=== PATIENT | male | born 1950 | race Caucasian/White ===

== ENCOUNTER 2017-09-19 12:20 | Inpatient (IN) | payer OTHER ==
[~2017-09-19] VITALS: Ht 182.9 cm; Wt 112.9 kg
--- NOTE | 2017-09-19 12:30 | NUR ---
PATIENT PRESENTS TO ED WITH COMPLAINTS OF SHORTNESS OF BREATH AND DIZZINES. REPORTS BEING RECENTLY DX WITH AFIB.DENIES N/V/D; SKIN IS PINK/WARM/DRY; AAOX4 WITH EVEN AND STEADY GAIT; PATIENT STATES PAIN OF 0/10 AT THIS TIME; VSS; PATIENT POSITIONED FOR COMFORT; HOB ELEVATED; BEDRAILS UP X1; BED DOWN. ER MD MADE AWARE OF PT STATUS.
[2017-09-19] MEDS ORDERED: NACL 0.9% 1,000 ML IV ONE (12:40)
[2017-09-19 13:27] LABS: BASOPHILS # (AUTO) 0.1 K/uL (0.00-0.22); BASOPHILS % (AUTO) 0.6 % (0.0-2.0); EOSINOPHILS # (AUTO) 0.1 K/uL (0-0.4); EOSINOPHILS % (AUTO) 0.9 % (0.0-4.0); HEMATOCRIT 37.1 % (36-52); HEMOGLOBIN 12.1 g/dL (12.0-18.0); LYMPHOCYTES # (AUTO) 1.5 K/uL (2.0-11.5); LYMPHOCYTES % (AUTO) 10.3 % (20.5-51.1); MEAN CORPUSCULAR HEMOGLOBIN 29 pg (27-31); MEAN CORPUSCULAR HGB CONC 33 g/dL (33-37); MEAN CORPUSCULAR VOLUME 88.2 fL (80-94); MONOCYTES % (AUTO) 7.3 % (1.7-9.3); NEUTROPHILS # (AUTO) 11.5 K/uL (1.8-7.7); NEUTROPHILS % (AUTO) 80.9 % (42.2-75.2); PLATELET COUNT (AUTO) 310 K/uL (140-450); RED BLOOD CELL COUNT(AUTO) 4.21 MIL/uL (4.20-6.10); RED CELL DISTRIBUTION WIDTH 17.7 % (11.6-13.7); WHITE BLOOD COUNT (AUTO) 14.2 K/uL (4.8-10.8)
--- NOTE | 2017-09-19 13:31 | NUR ---
X-RAY AT BEDSIDE
[2017-09-19 13:41] LABS: ALBUMIN 3.8 g/dL (3.4-5.0); CARBON DIOXIDE 26.5 mmol/L (21-32); CREATININE 1.2 mg/dL (0.7-1.3); POTASSIUM 3.5 mmol/L (3.5-5.1); TOTAL BILIRUBIN 0.7 mg/dL (0.0-1.0)
[2017-09-19] MEDS ORDERED: FUROSEMIDE 40 MG/4 ML VIAL IVP ONE (14:35)
[2017-09-19] MEDS ORDERED: ALBUTEROL SULFATE/IPRATROPIU 3 ML SOL IH ONE (14:35)
[2017-09-19] MEDS ORDERED: NITROGLYCERIN 2% 1 GM PKT TP ONE (14:35)
[2017-09-19] MEDS ORDERED: KETOROLAC 30 MG/ML VIAL IVP ONE (15:10)
[2017-09-19] MEDS: NACL 0.9% 1,000 ML IV SCH (15:16)
[2017-09-19] MEDS ORDERED: HYDROcodone/APAP 7.5/325 MG 1 TAB PO PRN (15:20)
[2017-09-19] MEDS ORDERED: ACETAMINOPHEN 325 MG TAB PO PRN (15:20)
[2017-09-19] MEDS ORDERED: ONDANSETRON 4 MG/2 ML VIAL IM/IVP PRN (15:20)
[2017-09-19] MEDS ORDERED: DOCUSATE SODIUM 100 MG GELCAP PO PRN (15:20)
[2017-09-19] MEDS ORDERED: [UNRECOGNIZED DRUG - CODE] PO (15:50)
[2017-09-19] MEDS ORDERED: GABA300C PO (15:50)
[2017-09-19] MEDS ORDERED: TRAM50TA1 PO (15:50)
[2017-09-19] MEDS ORDERED: CAR30 PO (15:50)
--- NOTE | 2017-09-19 16:00 | NUR ---
Admitted from ER , with chief complaint of SOB, 67 y/o ,Male, Appropriate, AAOX4 NO S/S OF ACUTE DISTRESS, PT DENIES PAIN. IV SITE PATENT AND INTACT. PT oriented to call light, bed, phone,television, bathroom, smoking policy, visiting hours, procedures, ID bracelet on. Belongings list checked. CALL LIGHT WITHIN REACH. SAFETY MEASURES ENSURED. WILL CONTINUE TO MONITOR.
[2017-09-19 16:11] LABS: APPEARANCE,URINE CLEAR (CLEAR); BILIRUBIN,URINE NEGATIVE (NEGATIVE); BLOOD, URINE NEGATIVE (NEGATIVE); COLOR,URINE YELLOW (YELLOW); LEUKOCYTE ESTERASE ,URINE NEGATIVE (NEGATIVE); NITRITE, URINE NEGATIVE (NEGATIVE); UGLUCOSE NEGATIVE (NEGATIVE)
[2017-09-19 16:15] LABS: PROTHROMBIN TIME 10.6 secs (10.8-13.4)
[2017-09-19 16:19] VITALS: BP 120/93
[2017-09-19 16:26] LABS: BARBITURATE, URINE NEG. ng/ml (NEG <=200); BENZODIAZEPINE, URINE NEG. ng/mL (NEG <=200); CANNABINOID, URINE NEG. ng/mL (NEG <=50); COCAINE, URINE NEG. ng/mL (NEG <=300); OPIATE, URINE NEG. ng/mL (NEG <=2000); PHENCYCLIDINE SCREEN,URINE NEG. ng/mL (NEG <=25)
[2017-09-19 16:31] LABS: CHOL/HDL RATIO 2.8 (1-4.5); FREE T4 (FREE THYROXINE) 0.99 ng/dL (0.76-1.46); PHOSPHORUS 3.9 mg/dL (2.5-4.9); THYROID STIMULATING HORMONE 1.96 uIU/mL (0.34-3.74)
[2017-09-19] MEDS ORDERED: APIX5TAB PO (16:42)
[2017-09-19] MEDS ORDERED: ALBU0.0912 IH (16:42)
[2017-09-19] MEDS ORDERED: AMITRIPTYLINE 50 MG TAB PO PRN (16:45)
[2017-09-19] MEDS ORDERED: traMADol 50 MG TAB PO PRN (16:45)
--- NOTE | 2017-09-19 17:01 | NUR ---
INSTRUCTED PT ON SPUTUM COLLECTION
[2017-09-19] MEDS ORDERED: ATOR40TA PO (17:14)
[2017-09-19] MEDS: GABAPENTIN 300 MG CAP PO SCH ×2 (17:42→20:37)
[2017-09-19] MEDS ORDERED: ALBUTEROL SULFATE/IPRATROPIU 3 ML SOL IH SCH (19:00)
--- NOTE | 2017-09-19 19:20 | NUR ---
RECEIVED REPORT FROM DAY SHIFT NURSE DUNIA-RN. PT RESTING IN BED, AOX4, ON 2L/NC WITH IV SITE RIGHT HAND 20G- NS RUNNING AT 50ML/HR. LUNG SOUNDS DIMINISHED BILATERALLY. DISCUSSED PLAN OF CARE AND PT VERBALIZED UNDERSTANDING. NO S/S OF RESPIRATORY DISTRESS OR DISCOMFORT NOTED AT THIS TIME. BED IN LOWEST POSITION, BED BREAKS ON, BOTH SIDE RAILS UP. BED SIDE TABLE AND CALL LIGHT ARE WITHIN REACH. WILL CONTINUE TO MONITOR.
[2017-09-19 20:00] VITALS: BP 110/69
--- NOTE | 2017-09-19 20:00 | NUR ---
VITAL SIGNS TAKEN AND TOLERATED WELL. NO S/S OF RESPIRATORY DISTRESS OR DISCOMFORT NOTED AT THIS TIME. WILL CONTINUE TO MONITOR.
[2017-09-19] MEDS: APIXABAN 2.5 MG TAB PO SCH (20:38)
[2017-09-19] MEDS: DILTIAZEM 30 MG TAB PO SCH (20:38)
--- NOTE | 2017-09-19 20:40 | NUR ---
SCHEDULED MEDICATION GIVEN AND TOLERATED WELL. NO S/S OF RESPIRATORY DISTRESS OR DISCOMFORT NOTED AT THIS TIME. WILL CONTINUE TO MONITOR.
[2017-09-19] MEDS ORDERED: DILTIAZEM 30 MG TAB PO SCH (21:00)
--- NOTE | 2017-09-19 22:00 | NUR ---
PT RESTING IN BED. NO S/S OF RESPIRATORY DISTRESS OR DISCOMFORT NOTED AT THIS TIME. WILL CONTINUE TO MONITOR.
[2017-09-20] VITALS: BP 105/75
--- NOTE | 2017-09-20 | NUR ---
PT SLEEPING IN BED. VITAL SIGNS TAKEN AND TOLERATED WELL. NO S/S OF RESPIRATORY DISTRESS OR DISCOMFORT NOTED AT THIS TIME. WILL CONTINUE TO MONITOR.
--- NOTE | 2017-09-20 02:00 | NUR ---
PT SITTING ON THE EDGE OF THE BED. ASKED IF ANYTHING WAS WRONG OR IF HE NEEDED ANYTHING AND HE STATED, "CAN YOU TURN DOWN THE A/C, IT'S HOT IN THIS ROOM." TOLD PT THAT WE ARE CURRENTLY HAVING PROBLEMS WITH THE A/C UNIT. NO S/S OF RESPIRATORY DISTRESS OR DISCOMFORT NOTED AT THIS TIME. WILL CONTINUE TO MONITOR.
[2017-09-20 04:00] VITALS: BP 105/62
--- NOTE | 2017-09-20 04:00 | NUR ---
PT SLEEPING IN BED. VITAL SIGNS TAKEN AND TOLERATED WELL. NO S/S OF RESPIRATORY DISTRESS OR DISCOMFORT NOTED AT THIS TIME. WILL CONTINUE TO MONITOR.
[2017-09-20] MEDS: DILTIAZEM 30 MG TAB PO SCH ×3 (04:57→21:37)
--- NOTE | 2017-09-20 05:00 | NUR ---
SCHEDULED MEDICATION CARDIZEM GIVEN AND TOLERATED WELL. NO S/S OF RESPIRATORY DISTRESS OR DISCOMFORT NOTED AT THIS TIME. WILL CONTINUE TO MONITOR.
--- NOTE | 2017-09-20 06:00 | NUR ---
PT SLEEPING IN BED AT THIS TIME. NO S/S OF RESPIRATORY DISTRESS OR DISCOMFORT NOTED AT THIS TIME. WILL CONTINUE TO MONITOR.
[2017-09-20 06:22] LABS: T4 (THYROXINE) 6.8 ug/dL (4.5-12.0)
[2017-09-20 07:12] LABS: BASOPHILS # (AUTO) 0.1 K/uL (0.00-0.22); BASOPHILS % (AUTO) 0.7 % (0.0-2.0); EOSINOPHILS # (AUTO) 0.2 K/uL (0-0.4); EOSINOPHILS % (AUTO) 1.6 % (0.0-4.0); HEMATOCRIT 36.5 % (36-52); HEMOGLOBIN 11.9 g/dL (12.0-18.0); LYMPHOCYTES # (AUTO) 1.6 K/uL (2.0-11.5); LYMPHOCYTES % (AUTO) 14.3 % (20.5-51.1); MEAN CORPUSCULAR HEMOGLOBIN 29 pg (27-31); MEAN CORPUSCULAR HGB CONC 33 g/dL (33-37); MEAN CORPUSCULAR VOLUME 88.3 fL (80-94); MONOCYTES # (AUTO) 0.9 K/uL (0.8-1.0); MONOCYTES % (AUTO) 7.9 % (1.7-9.3); NEUTROPHILS # (AUTO) 8.7 K/uL (1.8-7.7); NEUTROPHILS % (AUTO) 75.5 % (42.2-75.2); PLATELET COUNT (AUTO) 312 K/uL (140-450); RED BLOOD CELL COUNT(AUTO) 4.13 MIL/uL (4.20-6.10); RED CELL DISTRIBUTION WIDTH 17.8 % (11.6-13.7); WHITE BLOOD COUNT (AUTO) 11.5 K/uL (4.8-10.8)
--- NOTE | 2017-09-20 07:14 | NUR ---
ENDORSED PT CARE TO DAY SHIFT NURSE ELISEO FOR CONTINUITY OF CARE.
--- NOTE | 2017-09-20 07:15 | NUR ---
RECEIVED REPORT FROM RADIOLOGY SCHEDULER RN. PATIENT IS AAOX4. HAS NASAL CANNULA AT 2LPM, HAS NO SIGNS AND SYMPTOMS OF ACUTE DISTRESS NOTED AT THIS TIME. HAS IV TO THE RIGHT HAND 20G INFUSING NS AT 50 ML/HR. SITE IS CLEAN, DRY, PATENT AND INTACT. DISCUSSED PLAN OF CARE WITH PATIENT AND HE VERBALIZED UNDERSTANDING. BED IN LOWEST POSITION, SIDE RAILS UP X2, CALL LIGHT WITHIN REACH. WILL CONTINUE TO MONITOR.
[2017-09-20 07:17] LABS: ANION GAP 12.4 (8-16); CARBON DIOXIDE 26.6 mmol/L (21-32); CREATININE 1.3 mg/dL (0.7-1.3)
[2017-09-20 08:00] VITALS: BP 120/68
--- NOTE | 2017-09-20 08:20 | NUR ---
INSTRUCTED PT TO EXPECTORATE INTO SPECIMEN CUP. WILL CONT TO MONITOR PT.
[2017-09-20 08:57] LABS: MAGNESIUM 2.2 mg/dL (1.8-2.4); PHOSPHORUS 4.1 mg/dL (2.5-4.9)
--- NOTE | 2017-09-20 09:09 | NUR ---
PATIENT HAS BEEN SCREENED AND CATEGORIZED HIGH NUTRITION RISK. PATIENT WILL BE SEEN WITHIN 1-2 DAYS OF ADMISSION. 09/20/17 09/21/[address]
[2017-09-20] MEDS: ALBUTEROL SULFATE/IPRATROPIU 3 ML SOL IH PRN (09:16)
[2017-09-20] MEDS: GABAPENTIN 300 MG CAP PO SCH ×4 (09:44→21:38)
[2017-09-20] MEDS: ATORVASTATIN 20 MG TAB PO SCH (09:45)
[2017-09-20] MEDS: APIXABAN 2.5 MG TAB PO SCH ×2 (09:48→21:39)
[2017-09-20] MEDS: NACL 0.9% 1,000 ML IV SCH (10:10)
[2017-09-20 12:00] VITALS: BP 115/72
[2017-09-20] MEDS: ALBUTEROL SULFATE/IPRATROPIU 3 ML SOL IH SCH ×2 (13:38→19:00)
[2017-09-20 16:00] VITALS: BP 113/80
--- NOTE | 2017-09-20 19:32 | NUR ---
RECEIVED REPORT FROM BEATRIZ JC DAYSHIFT NURSE FOR CONTINUITY OF CARE, PT IN STABLE CONDITION.
--- NOTE | 2017-09-20 19:32 | NUR ---
ENDORSED PATIENT TO TECHNOLOGY EDUCATION TEACHER RN FOR CONTINUITY OF CARE. PATIENT IN STABLE CONDITION
[2017-09-20 20:00] VITALS: BP 109/73
--- NOTE | 2017-09-20 20:33 | NUR ---
PT ASLEEP, REFUSED HHNTX, NO RESP DISTRESS NOTED
[2017-09-20] MEDS ORDERED: SOTALOL 80 MG TAB PO SCH (21:00)
--- NOTE | 2017-09-20 21:00 | NUR ---
PT IN BED, RESTING BUT AROUSABLE TO NAME, NO C/O VOICED V/S FOLLOWS T 98.7 P 71 R 20 B/P 109/73 02 91 WITH R/A PT RECEIVED NEB TX AT 0000. IV SITE INTACT AND N/S RUNNING ORDERED.
[2017-09-21] VITALS: BP 115/81
[2017-09-21] MEDS: ALBUTEROL SULFATE/IPRATROPIU 3 ML SOL IH PRN ×2 (00:20→04:06)
--- NOTE | 2017-09-21 03:00 | NUR ---
PT BECAME RESTLESS AND C/O OF SOB. 02 WAS 97% WITH 2L VIA N/C. PT C/O OF NOT BEING ABLE TO "GET A BREATH IN". LUNG SOUNDS REFECT that c/o, NOT MUCH AIR MOVING IN SO NOT MUCH CAN MOVE OUT. MD SAL CALLED TO EXAMIN PT , RESPIRATORY CALLED AND NEB TX ORDERED.
[2017-09-21 04:00] VITALS: BP 96/65
--- NOTE | 2017-09-21 04:00 | NUR ---
4 PM V/S T 97.5 P 53 R 20 B/P 96/65 02 95 WITH 2 LITER VIA N/C. PT HAD NO C/O OF PAIN, AT THIS TIIME, ALL REQUESTED NEEDS ATTENDED BY STAFF AND CALL HAYDEN IN REACH.
[2017-09-21] MEDS: DILTIAZEM 30 MG TAB PO SCH (05:00)
--- NOTE | 2017-09-21 05:00 | NUR ---
PT RESTING IN BED NO S/S OF PAIN OR DISTRESS NOTED. BED LOW SIDE RAILS UP AND CALL HAYDEN IN REACH.
[2017-09-21 06:24] LABS: BASOPHILS # (AUTO) 0.1 K/uL (0.00-0.22); BASOPHILS % (AUTO) 0.7 % (0.0-2.0); EOSINOPHILS # (AUTO) 0.4 K/uL (0-0.4); EOSINOPHILS % (AUTO) 3.1 % (0.0-4.0); HEMATOCRIT 39.1 % (36-52); HEMOGLOBIN 12.6 g/dL (12.0-18.0); LYMPHOCYTES # (AUTO) 2.1 K/uL (2.0-11.5); LYMPHOCYTES % (AUTO) 16.2 % (20.5-51.1); MEAN CORPUSCULAR HEMOGLOBIN 29 pg (27-31); MEAN CORPUSCULAR HGB CONC 32 g/dL (33-37); MEAN CORPUSCULAR VOLUME 88.7 fL (80-94); MONOCYTES # (AUTO) 1.1 K/uL (0.8-1.0); MONOCYTES % (AUTO) 8.5 % (1.7-9.3); NEUTROPHILS # (AUTO) 9.2 K/uL (1.8-7.7); NEUTROPHILS % (AUTO) 71.5 % (42.2-75.2); PLATELET COUNT (AUTO) 354 K/uL (140-450); RED CELL DISTRIBUTION WIDTH 17.7 % (11.6-13.7); WHITE BLOOD COUNT (AUTO) 12.8 K/uL (4.8-10.8)
[2017-09-21 06:55] LABS: ANION GAP 11.9 (8-16); CARBON DIOXIDE 25.6 mmol/L (21-32); CREATININE 1.3 mg/dL (0.7-1.3); POTASSIUM 4.5 mmol/L (3.5-5.1)
[2017-09-21] MEDS: ALBUTEROL SULFATE/IPRATROPIU 3 ML SOL IH SCH (06:59)
[2017-09-21 07:08] LABS: MAGNESIUM 2.3 mg/dL (1.8-2.4); PHOSPHORUS 3.4 mg/dL (2.5-4.9)
--- NOTE | 2017-09-21 07:25 | NUR ---
GAVE REPORT AT BEDSIDE TO RN DAYSHIFT NURSE , PT IN STABLE CONDITION.
--- NOTE | 2017-09-21 07:26 | NUR ---
RECEIVED REPORT FROM PRE ALGEBRA TEACHER RN. PATIENT IS AAOX4. HAS NASAL CANNULA AT 2LPM, HAS NO SIGNS AND SYMPTOMS OF ACUTE DISTRESS NOTED AT THIS TIME. HAS IV TO THE LEFT HAND 22G INFUSING NS AT 50 ML/HR. SITE IS CLEAN, DRY, PATENT AND INTACT. DISCUSSED PLAN OF CARE WITH PATIENT AND HE VERBALIZED UNDERSTANDING. BED IN LOWEST POSITION, SIDE RAILS UP X2, CALL LIGHT WITHIN REACH. WILL CONTINUE TO MONITOR.
[2017-09-21 08:00] VITALS: BP 100/73
[2017-09-21] MEDS: ATORVASTATIN 20 MG TAB PO SCH (09:37)
[2017-09-21] MEDS: GABAPENTIN 300 MG CAP PO SCH (09:37)
[2017-09-21] MEDS: APIXABAN 2.5 MG TAB PO SCH (09:38)
--- NOTE | 2017-09-21 11:15 | NUR ---
PATIENT DIDN'T WANT TO WAIT FOR VOUCHER EXAMINER CONSULT. STATING THAT HE IS BEGINNING TO BE IN PAIN FROM LAYING AROUND TO MUCH. HIS FIBROMYALGIA IS ACTING UP. ASKING FOR THE AMA FORM. DR NULL EXPLAINED THE RISKS OF LEAVING AMA AND PATIENT VERBALIZED UNDERSTANDING. STILL WANTS TO LEAVE. REMOVED IV FROM SITE, CATHETER INTACT.
--- NOTE | 2017-09-21 11:35 | NUR ---
PATIENT DRESSED AND READY TO LEAVE. REQUESTED TO BE WHEELED OUT. HAS NO SIGNS AND SYMPTOMS OF ACUTE DISTRESS NOTED AT THIS TIME.
[2017-09-21] MEDS ORDERED: AZIT500T4 PO (15:49)
[2017-09-21] MEDS ORDERED: LACT10CA1 PO (15:50)
[2017-09-21] MEDS ORDERED: LISI-420 PO (15:51)
[2017-09-21] MEDS ORDERED: FURO-572 PO (15:55)
== END 2017-09-21 11:35 | disposition left against medical advice (07) | DRG 190 ==
LOC: MED 12:20 → MTU 15:16
PROVIDERS: ADMIT General Practice; ATTEND General Practice
DX: J44.1 Chronic obstructive pulmonary disease with (acute) exacerbation (principal); I50.43 Acute on chronic combined systolic (congestive) and diastolic (congestive) heart failure; I42.9 Cardiomyopathy, unspecified; G47.00 Insomnia, unspecified; E66.9 Obesity, unspecified; I48.91 Unspecified atrial fibrillation; Z88.2 Allergy status to sulfonamides; Z88.8 Allergy status to other drugs, medicaments and biological substances; M79.7 Fibromyalgia; F17.210 Nicotine dependence, cigarettes, uncomplicated; Z53.21 Procedure and treatment not carried out due to patient leaving prior to being seen by health care provider; D72.828 Other elevated white blood cell count; I34.0 Nonrheumatic mitral (valve) insufficiency; I27.21 Secondary pulmonary arterial hypertension; Z68.33 Body mass index [BMI] 33.0-33.9, adult; Z79.1 Long term (current) use of non-steroidal anti-inflammatories (NSAID); Z79.899 Other long term (current) drug therapy; Z90.49 Acquired absence of other specified parts of digestive tract
CPT/HCPCS: 36415; 36600; 71045; 80048; 80053; 80305; 81003; 82150; 82803; 83036; 83605; 83690; 83735; 83880; 84100; 84436; 84439; 84443; 84479; 84484; 85025; 85610; 85730; 87040; 87070; 87081; 87086; 87205; 93005; 94640; 96361; 96374; 96375; 99285; J0696; J1885; J1940; J7030; J7060; J7620; Q0092

== ENCOUNTER 2018-01-09 14:43 | Inpatient (IN) | payer OTHER ==
[~2018-01-09] VITALS: Ht 182.9 cm; Wt 123.8 kg
[~2018-01-09 14:43] MED LIST: ALBU0.0912 IH; APIX5TAB PO; ATOR40TA PO; AZIT500T4 PO; CAR30 PO; FURO-572 PO; GABA300C PO; LACT10CA1 PO; TRAM50TA1 PO; [UNRECOGNIZED DRUG - CODE] PO
[2018-01-09 14:51] VITALS: BP 129/83
--- NOTE | 2018-01-09 14:58 | NUR ---
PT AMBULATES TO BED 6 Addendum: 01/09/18 at 1458 by MEDHT BED 5
--- NOTE | 2018-01-09 15:11 | NUR ---
Patient being evaluated by physician at bedside.
--- NOTE | 2018-01-09 15:13 | NUR ---
67 YO M BIB W/ C/O CHEST DYSCOMFORT & COUGH X 5 DAYS. HX : SMOKE CIGARETTS. 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 PT REPORTS SEVERE PAIN IN THE MEDIAL CHEST FOR THE PAST FEW DAYS WHEN TRYING TO WALK. STATES THAT IT IS HIS HEART AND THAT IT CAUSES SOB. PT AMBULATES W/ STEADY GAIT TO TRAIGE. AAOX4, GCS 15. RR EVEN AND UNLABORED, LUNGS BL CLEAR. DENIES N/V. DENIES PAIN RADIATION. HX HEART STENT, A-FIB, FIBROMYALGIA, INSOMNIA, COPD RX ELOQUIS, DILTIAZEM, AMITRIPTYLINE, ALBUTEROL, OMEPRAZOLE, ATORVASTATIN, TRAMADOL, GABAPENTIN, TYLENOL
[2018-01-09] MEDS ORDERED: NACL 0.9% 500 ML IV SCH (15:19)
[2018-01-09] MEDS ORDERED: cefTRIAXone 1,000 MG in DEXT 5% MINI-BAG PLUS 50 ML IV ONE (15:20)
[2018-01-09] MEDS ORDERED: ONDANSETRON 4 MG/2 ML VIAL IVP ONE (15:20)
[2018-01-09] MEDS ORDERED: ALBUTEROL 0.083% 2.5 MG/3 ML NEBU INH ONE (15:20)
[2018-01-09] MEDS ORDERED: AZITHROMYCIN 500 MG in DEXTROSE 5% 250 ML IV ONE (15:20)
[2018-01-09] MEDS ORDERED: IPRATROPIUM 0.02% 0.5 MG/2.5 ML NEBU INH ONE (15:20)
[2018-01-09] MEDS ORDERED: methylPREDNISolone SS 125 MG/2 ML VIAL IVP ONE (15:20)
[2018-01-09] MEDS ORDERED: diphenhydrAMINE 50 MG/ML VIAL IVP ONE (15:20)
--- NOTE | 2018-01-09 15:27 | NUR ---
CALLED RT FOR TREATMENT
--- NOTE | 2018-01-09 15:35 | NUR ---
RT AT BEDSIDE
[2018-01-09] MEDS ORDERED: AZITHROMYCIN 500 MG INJ VIAL IV ONE (15:36)
[2018-01-09] MEDS ORDERED: cefTRIAXone 1,000 MG VIAL ONE (15:37)
[2018-01-09 15:56] LABS: BASOPHILS # (AUTO) 0.1 K/uL (0.00-0.22); EOSINOPHILS # (AUTO) 0.1 K/uL (0-0.4); HEMATOCRIT 35.8 % (36-52); HEMOGLOBIN 11.3 g/dL (12.0-18.0); LYMPHOCYTES # (AUTO) 1.3 K/uL (2.0-11.5); LYMPHOCYTES % (AUTO) 14.5 % (20.5-51.1); MEAN CORPUSCULAR HEMOGLOBIN 27 pg (27-31); MEAN CORPUSCULAR HGB CONC 32 g/dL (33-37); MEAN CORPUSCULAR VOLUME 84.2 fL (80-94); MONOCYTES # (AUTO) 0.7 K/uL (0.8-1.0); MONOCYTES % (AUTO) 7.5 % (1.7-9.3); PLATELET COUNT (AUTO) 309 K/uL (140-450); RED BLOOD CELL COUNT(AUTO) 4.25 MIL/uL (4.20-6.10); RED CELL DISTRIBUTION WIDTH 18.6 % (11.6-13.7); WHITE BLOOD COUNT (AUTO) 9.3 K/uL (4.8-10.8)
--- NOTE | 2018-01-09 15:59 | NUR ---
UNABLE TO OBTAIN ABG AT THIS TIME DR. FAULKNER NOTIFIED
--- NOTE | 2018-01-09 16:04 | NUR ---
EKG AT BEDSIDE
[2018-01-09 16:12] LABS: PROTHROMBIN TIME 12.3 secs (10.8-13.4)
--- NOTE | 2018-01-09 16:13 | NUR ---
X RAY AT BEDSIDE.
[2018-01-09 16:17] LABS: ANION GAP 16.4 (8-16); CARBON DIOXIDE 23.6 mmol/L (21-32); CREATININE 1.4 mg/dL (0.7-1.3)
--- NOTE | 2018-01-09 16:17 | NUR ---
XRAY AT BEDSIDE
[2018-01-09 16:22] LABS: ALBUMIN 3.3 g/dL (3.4-5.0); TOTAL BILIRUBIN 0.8 mg/dL (0.0-1.0)
--- NOTE | 2018-01-09 16:41 | NUR ---
PATIENT BP 70/49, HR 61. PATIENT REPORTED FEELING FAINT. DENIES SOB OR PAIN IN CHEST. STOPPED IV AND DICONNECTED. REPORTED TO DOCTOR.
--- NOTE | 2018-01-09 16:42 | NUR ---
PATIENT EXHIBITED ALLERGIC REACTION TO ZITHROMYACIN, ER MD NOTIFED. STATES TO DISCONTINE ABX, NO NEW ORDERS AT THIS TIME. VSS AT THIS TIME, PATIENT DENIES SOB AND DIFFICULTY BREATHING. SAFETY PRECAUTIONS IN PLACE.
--- NOTE | 2018-01-09 16:45 | NUR ---
PATIENTS BP 100/81, HR 100, RR 16, 100%. PATIENT STATES FEELING BETTER.
[2018-01-09] MEDS ORDERED: MORPHINE SULFATE 2 MG/ML SYR IVP PRN (17:10)
[2018-01-09] MEDS ORDERED: ZOLPIDEM 5 MG TAB PO PRN (17:10)
[2018-01-09] MEDS ORDERED: LORazepam 2 MG/ML VIAL IM/IVP PRN (17:10)
[2018-01-09] MEDS ORDERED: ONDANSETRON 4 MG/2 ML VIAL IM/IVP PRN (17:10)
[2018-01-09] MEDS ORDERED: DOCUSATE SODIUM 100 MG GELCAP PO PRN (17:10)
[2018-01-09] MEDS ORDERED: HYDROcodone/APAP 5/325 MG 1 TAB TAB PO PRN (17:10)
[2018-01-09] MEDS ORDERED: ACETAMINOPHEN 325 MG TAB PO PRN (17:10)
[2018-01-09 17:52] LABS: MAGNESIUM 1.6 mg/dL (1.8-2.4); PHOSPHORUS 3.2 mg/dL (2.5-4.9); THYROID STIMULATING HORMONE 2.32 uIU/mL (0.34-3.74)
--- NOTE | 2018-01-09 18:00 | NUR ---
PT TAKEN TO TELE FLOOR BY RN INOCENCIA AND EMT BILL
[2018-01-09 18:08] VITALS: BP 114/81
--- NOTE | 2018-01-09 18:08 | NUR ---
Patient will be admitted to care of DR BATISTA. Admited to TELE. Will go to room 124 A. Belongings list completed. Report to VIGNESH JC.
--- NOTE | 2018-01-09 18:08 | NUR ---
RECEIVED REPORT FROM ER NURSE FOR CONTINUITY OF CARE. PT IN STABLE CONDITION. RESPIRATIONS EVEN AND UNLABORED. IV INTACT PATENT, SALINE LOCK. SAFETY MEASURES IN PLACE. BED IN LOW POSITION. WILL CONTINUE TO MONITOR.
--- NOTE | 2018-01-09 19:18 | NUR ---
GAVE REPORT TO NIGHT NURSE FOR CONTINUITY OF CARE.PT IN STABLE CONDITION.
--- NOTE | 2018-01-09 19:19 | NUR ---
RECEIVED REPORT FROM DAY SHIFT RN. PT IS A&O X4. ON NC 2L. RESPIRATIONS ARE EQUAL BUT LABORED. WHEEZING ON EXPIRATION. RT NOTIFIED. SKIN IS INTACT. HAS IV ON R FA 24 G SALINE LOCK. PT ON FALL PRECAUTIONS. PT ON TELEMONITOR HAS A-FIB. ALL SAFETY MEASURES ARE IN PLACE. CALL LIGHT WITHIN REACH WILL CONTINUE TO MONITOR.
[2018-01-09 20:00] VITALS: BP 137/63
[2018-01-09 20:02] LABS: APPEARANCE,URINE CLEAR (CLEAR); BILIRUBIN,URINE NEGATIVE (NEGATIVE); BLOOD, URINE NEGATIVE (NEGATIVE); COLOR,URINE YELLOW (YELLOW); LEUKOCYTE ESTERASE ,URINE NEGATIVE (NEGATIVE); NITRITE, URINE NEGATIVE (NEGATIVE); UGLUCOSE NEGATIVE (NEGATIVE)
[2018-01-09] MEDS ORDERED: ALBUTEROL SULFATE/IPRATROPIU 3 ML SOL IH PRN (20:10)
[2018-01-09 20:12] LABS: BARBITURATE, URINE NEG. ng/ml (NEG <=200); BENZODIAZEPINE, URINE NEG. ng/mL (NEG <=200); CANNABINOID, URINE NEG. ng/mL (NEG <=50); COCAINE, URINE NEG. ng/mL (NEG <=300); OPIATE, URINE NEG. ng/mL (NEG <=2000); PHENCYCLIDINE SCREEN,URINE NEG. ng/mL (NEG <=25)
[2018-01-09] MEDS: NACL 0.9% 1,000 ML IV SCH (21:00)
[2018-01-09] MEDS ORDERED: PIPERACILLIN/TAZOBACTAM 3.375 GM VIAL IV ONE (21:01)
[2018-01-09] MEDS: PIPER/TAZO 3.375GM/D5W PREMIX 50 ML IV SCH (21:06)
--- NOTE | 2018-01-09 21:06 | NUR ---
VITAL SIGNS ARE WITHIN NORMAL LIMITS. DUE MEDICATIONS GIVEN. ZOSYN INFUSING PER ORDERS. ALL NEEDS MET AT THIS TIME WILL CONTINUE TO MONITOR.
[2018-01-09] MEDS: DILTIAZEM 30 MG TAB PO SCH (21:08)
[2018-01-09] MEDS: APIXABAN 2.5 MG TAB PO SCH (21:16)
[2018-01-09] MEDS: methylPREDNISolone SS 125 MG/2 ML VIAL IVP SCH (22:36)
--- NOTE | 2018-01-09 22:36 | NUR ---
DUE MEDICATIONS GIVEN PT TOLERATED WELL. CALL LIGHT WITHIN REACH.
[2018-01-10] VITALS (7 sets, daily range): BP systolic 95–113; BP diastolic 50–78
--- NOTE | 2018-01-10 00:17 | NUR ---
PT ATTEMPTED TO GET OUT OF BED AND PULLED IV OUT. IV CATH INTACT. PT IN NO DISTRESS. WILL INSERT NEW IV. CALL LIGHT WITHIN REACH.
[2018-01-10] MEDS: ALBUTEROL SULFATE/IPRATROPIU 3 ML SOL IH SCH ×4 (00:26→19:39)
--- NOTE | 2018-01-10 02:45 | NUR ---
PT SLEEPING NO DISTRESS NOTED. CALL LIGHT WITHIN REACH. WILL CONTINUE TO MONITOR.
[2018-01-10] MEDS: PIPER/TAZO 3.375GM/D5W PREMIX 50 ML IV SCH ×3 (04:15→20:45)
[2018-01-10] MEDS: DILTIAZEM 30 MG TAB PO SCH ×3 (04:16→20:47)
[2018-01-10] MEDS ORDERED: PIPERACILLIN/TAZOBACTAM 3.375 GM VIAL IV ONE (04:16)
--- NOTE | 2018-01-10 04:24 | NUR ---
ZOSYN NOW INFUSING PER ORDERS. DUE MEDICATIONS GIVEN PT TOLERATED WELL. CALL LIGHT WITHIN REACH.
[2018-01-10] MEDS: methylPREDNISolone SS 125 MG/2 ML VIAL IVP SCH (06:00)
--- NOTE | 2018-01-10 06:00 | NUR ---
DUE MEDICATION GIVEN. PT TOLERATED WELL. CALL LIGHT WITHIN REACH.
[2018-01-10] MEDS: NACL 0.9% 1,000 ML IV SCH ×2 (06:03→18:53)
[2018-01-10 06:51] LABS: BASOPHILS % (AUTO) 0.2 % (0.0-2.0); EOSINOPHILS % (AUTO) 0.1 % (0.0-4.0); HEMATOCRIT 36.3 % (36-52); HEMOGLOBIN 11.6 g/dL (12.0-18.0); LYMPHOCYTES # (AUTO) 0.7 K/uL (2.0-11.5); LYMPHOCYTES % (AUTO) 10.6 % (20.5-51.1); MEAN CORPUSCULAR HEMOGLOBIN 27 pg (27-31); MEAN CORPUSCULAR HGB CONC 32 g/dL (33-37); MEAN CORPUSCULAR VOLUME 83.5 fL (80-94); MONOCYTES # (AUTO) 0.1 K/uL (0.8-1.0); MONOCYTES % (AUTO) 1.8 % (1.7-9.3); NEUTROPHILS # (AUTO) 5.7 K/uL (1.8-7.7); NEUTROPHILS % (AUTO) 87.3 % (42.2-75.2); PLATELET COUNT (AUTO) 328 K/uL (140-450); RED BLOOD CELL COUNT(AUTO) 4.35 MIL/uL (4.20-6.10); RED CELL DISTRIBUTION WIDTH 18.5 % (11.6-13.7); WHITE BLOOD COUNT (AUTO) 6.6 K/uL (4.8-10.8)
[2018-01-10 07:04] LABS: ANION GAP 14.4 (8-16); CARBON DIOXIDE 24.5 mmol/L (21-32); CREATININE 1.4 mg/dL (0.7-1.3); POTASSIUM 4.9 mmol/L (3.5-5.1)
--- NOTE | 2018-01-10 07:25 | NUR ---
ENDORSED PT TO DAY SHIFT RN. PT IN STABLE CONDITION.
--- NOTE | 2018-01-10 07:26 | NUR ---
RECEIVED BEDSIDE REPORT FROM ART EDITOR NURSE. PATIENT IS AWAKE, ALERT AND ORIENTEDX4. NO SIGNS OF DISTRESS ON 2L NC. SKIN IS INTACT, IV ON L HAND 24G INFUSING NS AT 80. CLEAN, DRY AND INTACT. SOB W EXERTION. FALL RISK PROTOCOL IN PLACE D/T WEAKNESS. URINAL AT BEDSIDE. PATIENT IS CONTINENT. TELE MONITOR IN PLACE. AT BEDSIDE. WILL CONTINUE TO MONITOR, CALL LIGHT WITHIN REACH. WILL CONTINUE TO MONITOR THE PATIENT
[2018-01-10 07:30] LABS: CHOL/HDL RATIO 5.3 (1-4.5); MAGNESIUM 1.9 mg/dL (1.8-2.4); PHOSPHORUS 3.2 mg/dL (2.5-4.9)
[2018-01-10 08:41] LABS: T4 (THYROXINE) 5.4 ug/dL (4.5-12.0)
--- NOTE | 2018-01-10 08:49 | NUR ---
PATIENT HAS BEEN SCREENED AND CATEGORIZED MODERATE NUTRITION RISK. PATIENT WILL BE SEEN WITHIN 3-5 DAYS OF ADMISSION. 01/12/18 01/14/[address]
[2018-01-10] MEDS: MAGNESIUM OXIDE 400 MG TAB PO SCH (09:00)
--- NOTE | 2018-01-10 09:00 | NUR ---
PATIENT CHATING W HIS AT THIS TIME. NO SIGNS OF DISTRESS. WILL CONTINUE TO MONITOR THE PATIENT
[2018-01-10] MEDS: FUROSEMIDE 20 MG TAB PO SCH (10:18)
[2018-01-10] MEDS: ATORVASTATIN 20 MG TAB PO SCH (10:19)
[2018-01-10] MEDS: APIXABAN 2.5 MG TAB PO SCH ×2 (10:21→20:46)
--- NOTE | 2018-01-10 10:28 | NUR ---
ADMINISTERED MEDS. PATIENT TOLERATED WELL. WILL CONTINUE TO MONITOR THE PATIENT. HELD MAG OX. MAG OX IS 1.9. DR CORTÉS SAID I CAN HOLD IT AT THIS TIME.
--- NOTE | 2018-01-10 11:32 | NUR ---
PATIENTS FAMILY AT BEDSIDE. PATIENT IN STABLE CONDITION. WILL CONTINUE TO MONITOR.
--- NOTE | 2018-01-10 13:40 | NUR ---
GAVE BEDSIDE REPORT TO SITAL. PATIENT IN STABLE CONDITION. ON 2 L NC.
--- NOTE | 2018-01-10 13:45 | NUR ---
RECEIVED REPORT FORM AM NURSE AT BEDSIDE. PT ADMITTED DX OF COPD EXACERBATION AND CARDIAC PALPITATIONS. PT HAD CC OF CHEST DISCOMFORT X5 DAYS, HAS COUGH. PT SITTING ON HIS BEDSIDE, IS WITH RT. PT ON 02 @ 2LPM. REGULAR DIET. NO SIGN OF DISTRESS NOTED AT THIS TIME. CALL LIGHT WITHIN PT REACH. ASKED HIM TO USE CALL LIGHT FOR ANY HELP. WILL CONTINUE TO MONITOR PT.
[2018-01-10] MEDS: methylPREDNISolone SS 40 MG/ML VIAL IVP SCH ×2 (16:00→23:31)
--- NOTE | 2018-01-10 16:47 | NUR ---
CHECKED ON PT. SITTING ON HIS BED AND WATCHING TV. PT AT BEDSIDE. VS NORMAL NOTED. PT OXYGEN SAT 95 ON RA, PT HAS MILD LABORED BREATHING. INFORMED HIM TO USE OXYGEN VIA NC IF HE FELT SOB . VERBALIZED UNDERSTANDING OF TEACHING. ALL SAFETY MEASURE IN PLACE. WILL CONTINUE TO MONITOR PT.
--- NOTE | 2018-01-10 18:18 | NUR ---
CHECKED ON PT. EATING HI DINNER AT THIS TIME. PT STATES IS COMFORTABLE AT THIS TIME NO SIGN OF DISTRESS NOTED. INFORMED HIM TO USE CALL LIGHT FOR ANY HELP. VERBALIZED UNDERSTANDING. PT HAS NO SIGN OF SOB AT THIS TIME. WILL CONTINUE TO MONITOR PT.
--- NOTE | 2018-01-10 19:05 | NUR ---
ENDORSED PT TO PM NURSE AT BEDSIDE. PT SITTING ON HIS BED , WATCHING TV. NO SIGN OF DISTRESS. PT IS STABLE AND HAS NO SIGN OF SOB.
--- NOTE | 2018-01-10 19:06 | NUR ---
RECEIVED PT IN STABLE CONDITION FROM AM NURSE. AWAKE,ALERT AND ORIENTED X4. ON TELE MONITOR . WITH NO C/O ANY DISCOMFORT NOR DISTRESS NOTED. NO SOB NOTED ALSO. ON ROOM AIR 96% O2 SAT. DENIES ANY PAIN. WITH IVF INFUSING WELL ON THE LT HAND #24. CLEAR AND PATENT. PLAN OF CARE DISCUSSED AND VERBALIZED UNDERSTANDING. BED ON LOWEST POSITION. FREQUENT ROUNDS NEEDED. CALL LIGHT AND URINAL WITHIN EASY REACH. WILL CONTINUE TO MONITOR.
--- NOTE | 2018-01-10 19:50 | NUR ---
RECEIVED PATIENT ON ROOM AIR, O2 SAT 98%. SCHEDULED BREATHING TREATMENT ADMINISTERED. PATIENT TOLERATED TX WELL, NO ADVERSE SIDE EFFECTS. NO RESPIRATORY DISTRESS NOTED AT THIS TIME. WILL CONTINUE TO MONITOR.
[2018-01-10] MEDS ORDERED: AMITRIPTYLINE 50 MG TAB PO SCH (21:00)
--- NOTE | 2018-01-10 21:01 | NUR ---
VENPOUS DOPPLER STUDY RESULT CAME IN , NO DVT .
[2018-01-10] MEDS ORDERED: AMITRIPTYLINE 50 MG TAB PO PRN (21:15)
[2018-01-10] MEDS ORDERED: ZOLPIDEM 10 MG TAB PO SCH (21:30)
--- NOTE | 2018-01-10 22:30 | NUR ---
MADE ROUNDS. PT SLEEPING. NO S/S OF ANY DISTRESS NOTED. WILL CONTINUE TO MONITOR.
[2018-01-11] MEDS: ALBUTEROL SULFATE/IPRATROPIU 3 ML SOL IH SCH ×4 (01:17→19:45)
--- NOTE | 2018-01-11 01:28 | NUR ---
SCHEDULED BREATHING TREATMENT ADMINISTERED. TOLERATED TX WELL, NO ADVERSE SIDE EFFECTS. WILL CONTINUE TO MONITOR.
--- NOTE | 2018-01-11 02:30 | NUR ---
MADE ROUNDS. PT ASLEEP. WITH NO S/S OF ANY DISCOMFORT NOR PAIN NOTED.
[2018-01-11 04:00] VITALS: BP 105/66
[2018-01-11] MEDS: PIPER/TAZO 3.375GM/D5W PREMIX 50 ML IV SCH ×3 (04:52→20:47)
[2018-01-11] MEDS: DILTIAZEM 30 MG TAB PO SCH ×3 (05:00→20:47)
--- NOTE | 2018-01-11 05:10 | NUR ---
DR. MCCORMICK ,RESIDENT MADE AWARE THAT BP IS IN LOW SIDE . HE SAID TO HOLD THE CARDIZEM DOSE THIS AM @0500. Addendum: 01/11/18 at 0524 by Cici Barry RN CANCEL DR. MCCORMICK. IT WAS DR. PARSONS INSTEAD THAT I CALLED.
[2018-01-11] MEDS: methylPREDNISolone SS 40 MG/ML VIAL IVP SCH (06:59)
--- NOTE | 2018-01-11 07:00 | NUR ---
UP TO BATHROOM. HAD A BOWEL MOVEMENT.
--- NOTE | 2018-01-11 07:20 | NUR ---
ENDORSED PT IN STABLE CONDITION TO AM NURSE.
--- NOTE | 2018-01-11 07:21 | NUR ---
RECEIVED BEDSIDE REPORT FROM PM NURSE TREY. PT AWAKE, VERBALLY RESPONSIVE, RESPIRATIONS EVEN & NONLABORED IN ROOM AIR. LEFT FA IV INTACT & ASYMPTOMATIC WITH ONGOING IVF. CALL LIGHT WITHIN REACH. BED ALARM ON.
[2018-01-11] MEDS: NACL 0.9% 1,000 ML IV SCH ×2 (07:23→18:39)
[2018-01-11 08:00] VITALS: BP 104/81
[2018-01-11 08:03] LABS: HEMATOCRIT 36.8 % (36-52); HEMOGLOBIN 11.4 g/dL (12.0-18.0); LYMPHOCYTES % (AUTO) 4.9 % (20.5-51.1); MEAN CORPUSCULAR HEMOGLOBIN 26 pg (27-31); MEAN CORPUSCULAR HGB CONC 31 g/dL (33-37); MEAN CORPUSCULAR VOLUME 84.6 fL (80-94); MONOCYTES # (AUTO) 0.9 K/uL (0.8-1.0); MONOCYTES % (AUTO) 4.5 % (1.7-9.3); NEUTROPHILS # (AUTO) 18.2 K/uL (1.8-7.7); NEUTROPHILS % (AUTO) 90.6 % (42.2-75.2); PLATELET COUNT (AUTO) 388 K/uL (140-450); RED BLOOD CELL COUNT(AUTO) 4.35 MIL/uL (4.20-6.10); WHITE BLOOD COUNT (AUTO) 20.1 K/uL (4.8-10.8)
[2018-01-11 08:23] LABS: ANION GAP 18.8 (8-16); CARBON DIOXIDE 22.8 mmol/L (21-32); CREATININE 1.8 mg/dL (0.7-1.3); POTASSIUM 4.6 mmol/L (3.5-5.1)
[2018-01-11 08:27] LABS: PHOSPHORUS 4.4 mg/dL (2.5-4.9)
--- NOTE | 2018-01-11 08:30 | NUR ---
NEW IV ACCESS TO RIGHT HAND. RESUMED NS @ 100ML/HR.
[2018-01-11] MEDS: ATORVASTATIN 20 MG TAB PO SCH (08:40)
[2018-01-11] MEDS: FUROSEMIDE 20 MG TAB PO SCH (08:40)
[2018-01-11] MEDS: MAGNESIUM OXIDE 400 MG TAB PO SCH (08:40)
--- NOTE | 2018-01-11 09:15 | NUR ---
PT SITTING UP IN BED, EATING BREAKFAST. NO C/O DISCOMFORT. RESPIRATIONS EVEN & NONLABORED. INTERMITTENT NON-PRODUCTIVE COUGH PRESENT. RIGHT HAND IV INTACT & ASYMPTOMATIC WITH ONGOING IVF.
[2018-01-11] MEDS: APIXABAN 2.5 MG TAB PO SCH ×2 (11:29→20:52)
--- NOTE | 2018-01-11 11:30 | NUR ---
PT ABLE TO USE URINAL INDEPENDENTLY. NO C/O DISCOMFORT. RESPIRATIONS EVEN & NONLABORED. INTERMITTENT NON-PRODUCTIVE COUGH PRESENT. CALL LIGHT WITHIN REACH.
[2018-01-11 12:00] VITALS: BP 102/74
--- NOTE | 2018-01-11 15:09 | NUR ---
PT ASLEEP IN HIGH FOWLERS. RESPIRATIONS EVEN & NONLABORED. FLACC 0. AT BEDSIDE VISITING. CALL LIGHT WITHIN REACH.
[2018-01-11 16:00] VITALS: BP 112/75
--- NOTE | 2018-01-11 17:23 | NUR ---
PT IN HGH FOWLERS IN BED, AWAKE, WATCHING TV. RESPIRATIONS EVEN & NONLABORED IN ROOM AIR. NO C/O DISCOMFORT. RIGHT HAND IV INTACT & ASYMPTOMATIC WITH ONGOING IVF NS @ 100ML/HR. CALL LIGHT WITHIN REACH.
--- NOTE | 2018-01-11 18:19 | NUR ---
PT SITTING UP EATING DINNER. NO C/O DISCOMFORT. RESPIRATIONS EVEN & NONLABORED. INTERMITTENT NON-PRODUCTIVE COUGH PRESENT. CALL LIGHT WITHIN REACH.
--- NOTE | 2018-01-11 19:15 | NUR ---
BEDSIDE REPORT GIVEN TO PM NURSE MAXIMUS. PT IN BED, AWAKE, VERBALLY RESPONSIVE, RESPIRATIONS EVEN & NONLABORED. CALL LIGHT WITHIN REACH.
--- NOTE | 2018-01-11 19:16 | NUR ---
RECEIVED BEDSIDE REPORT FROM DAY SHIFT NURSE MARIPOSA RN, PT STABLE, NO DISTRESS NOTED, IV TO R HAND 22G PATENT, INTACT, INFUSING NS @ 100ML/HR, PT ON ROOM AIR, NO SOB, INITIAL ASSESSMENT DONE, ALL SAFETY PRECAUTION MET, CALL LIGHT WITHIN REACH, WILL CONTINUE TO MONITOR.
--- NOTE | 2018-01-11 19:37 | NUR ---
PT C/O HEADACHE 04/15, TYLENOL PER MD ORDER ADMINISTERED, PT TOLERATED WELL, NO DISTRESS NOTED, CALL LIGHT WITHIN REACH, WILL CONTINUE TO MONITOR.
--- NOTE | 2018-01-11 20:47 | NUR ---
DUE MEDICATION ADMINISTERED, PT TOLERATED WELL, NO DISTRESS NOTED, CALL LIGHT WITHIN REACH, WILL CONTINUE TO MONITOR.
--- NOTE | 2018-01-11 22:08 | NUR ---
PT STATED HAVING TROUBLE SLEEPING, ALTAGRACIAIEN PER DR ORDER ADMINISTERED, PT TOLERATED WELL, NO DISTRESS NOTED, CALL LIGHT WITHIN REACH, WILL CONTINUE TO MONITOR.
[2018-01-11] MEDS ORDERED: ZOLPIDEM 5 MG TAB PO SCH (22:30)
--- NOTE | 2018-01-11 23:40 | NUR ---
CHECKED ON PT, PT RESTING, NO DISTRESS NOTED, CALL LIGHT WITHIN REACH, WILL CONTINUE TO MONITOR.
[2018-01-12] VITALS: BP 107/76
[2018-01-12] MEDS: ALBUTEROL SULFATE/IPRATROPIU 3 ML SOL IH SCH ×2 (01:53→06:48)
[2018-01-12] MEDS: NACL 0.9% 1,000 ML IV SCH (02:29)
--- NOTE | 2018-01-12 02:40 | NUR ---
CHECKED ON PT, PT RESTING, NO DISTRESS NOTED, CALL LIGHT WITHIN REACH, WILL CONTINUE TO MONITOR.
[2018-01-12] MEDS: DILTIAZEM 30 MG TAB PO SCH (05:31)
[2018-01-12] MEDS: PIPER/TAZO 3.375GM/D5W PREMIX 50 ML IV SCH (05:31)
--- NOTE | 2018-01-12 05:31 | NUR ---
DUE MEDICATION ADMINISTERED, PT TOLERATED WELL, NO DISTRESS NOTED, CALL LIGHT WITHIN REACH, WILL CONTINUE TO MONITOR.
[2018-01-12 07:11] LABS: BASOPHILS % (AUTO) 0.1 % (0.0-2.0); HEMATOCRIT 36.7 % (36-52); HEMOGLOBIN 11.5 g/dL (12.0-18.0); LYMPHOCYTES # (AUTO) 1.1 K/uL (2.0-11.5); LYMPHOCYTES % (AUTO) 6.1 % (20.5-51.1); MEAN CORPUSCULAR HEMOGLOBIN 26 pg (27-31); MEAN CORPUSCULAR HGB CONC 31 g/dL (33-37); MEAN CORPUSCULAR VOLUME 83.6 fL (80-94); MONOCYTES # (AUTO) 1.4 K/uL (0.8-1.0); MONOCYTES % (AUTO) 7.7 % (1.7-9.3); NEUTROPHILS % (AUTO) 86.1 % (42.2-75.2); PLATELET COUNT (AUTO) 372 K/uL (140-450); RED BLOOD CELL COUNT(AUTO) 4.39 MIL/uL (4.20-6.10); RED CELL DISTRIBUTION WIDTH 18.7 % (11.6-13.7); WHITE BLOOD COUNT (AUTO) 18.5 K/uL (4.8-10.8)
--- NOTE | 2018-01-12 07:15 | NUR ---
ENDORSED PT TO DAY SHIFT NURSE REY JC, PT STABLE, NO DISTRESS NOTED, CALL LIGHT WITHIN REACH.
[2018-01-12 07:24] LABS: ANION GAP 14.1 (8-16); CARBON DIOXIDE 23.9 mmol/L (21-32); CREATININE 1.7 mg/dL (0.7-1.3)
--- NOTE | 2018-01-12 07:56 | NUR ---
RECEIVED BEDSIDE REPORT FROM WATER HYDRANT INSTALLER NURSE. PT STABLE, NO DISTRESS NOTED, IV TO R HAND 22G PATENT, INTACT, INFUSING NS @ 100ML/HR, PT ON ROOM AIR, NO SOB, INITIAL ASSESSMENT DONE, ALL SAFETY PRECAUTION MET, CALL LIGHT WITHIN REACH, WILL CONTINUE TO MONITOR.
[2018-01-12 08:00] VITALS: BP 127/80
[2018-01-12] MEDS ORDERED: predniSONE 20 MG TAB PO SCH (09:00)
--- NOTE | 2018-01-12 09:20 | NUR ---
PT RESTING IN BED. DENIES PAIN. ALL NEEDS MET. BED IN LOW POSITION. CALL LIGHT WITHIN REACH.
[2018-01-12] MEDS: MAGNESIUM OXIDE 400 MG TAB PO SCH (09:41)
[2018-01-12] MEDS: ATORVASTATIN 20 MG TAB PO SCH (09:43)
[2018-01-12] MEDS: APIXABAN 2.5 MG TAB PO SCH (09:44)
[2018-01-12] MEDS ORDERED: PRED20TA5 PO ×3 (09:56→10:08)
[2018-01-12] MEDS ORDERED: PRED10TA5 PO (09:59)
[2018-01-12] MEDS ORDERED: DOXY100C9 PO (10:09)
[2018-01-12 11:49] VITALS: BP 127/80
--- NOTE | 2018-01-12 13:05 | NUR ---
PT DISCHARGED HOME. IV REMOVED, TIP INTACT. PT WAS TAKEN BY WHEELCHAIR. WENT HOME WITH SPOUSE. ALL PERSONAL BELONGINGS TAKEN. FLU AND PNA VACCINES UP TO DATE. PT DISCHARGE PAPERWORK AND TEACHING GIVEN. PT VERBALIZED UNDERSTANDING. WRIST BANDS REMOVED. PT LEFT IN STABLE CONDITION WITH NO COMPLAINTS OF PAIN.
== END 2018-01-12 13:05 | disposition home or self-care (01) | DRG 177 ==
LOC: MED 14:43 → MTU 17:08
PROVIDERS: ADMIT General Practice; ATTEND General Practice
DX: J69.0 Pneumonitis due to inhalation of food and vomit (principal); N17.0 Acute kidney failure with tubular necrosis; J96.01 Acute respiratory failure with hypoxia; I50.43 Acute on chronic combined systolic (congestive) and diastolic (congestive) heart failure; J44.1 Chronic obstructive pulmonary disease with (acute) exacerbation; E87.1 Hypo-osmolality and hyponatremia; E44.1 Mild protein-calorie malnutrition; I48.91 Unspecified atrial fibrillation; D64.9 Anemia, unspecified; E83.42 Hypomagnesemia; E78.5 Hyperlipidemia, unspecified; T38.0X5A Adverse effect of glucocorticoids and synthetic analogues, initial encounter; I25.10 Atherosclerotic heart disease of native coronary artery without angina pectoris; E66.01 Morbid (severe) obesity due to excess calories; F17.210 Nicotine dependence, cigarettes, uncomplicated; M79.7 Fibromyalgia; Z79.01 Long term (current) use of anticoagulants; Z68.36 Body mass index [BMI] 36.0-36.9, adult; Z88.2 Allergy status to sulfonamides; Z88.8 Allergy status to other drugs, medicaments and biological substances; Z79.899 Other long term (current) drug therapy; Z90.49 Acquired absence of other specified parts of digestive tract; Z90.89 Acquired absence of other organs; Z68.37 Body mass index [BMI] 37.0-37.9, adult; Y92.89 Other specified places as the place of occurrence of the external cause; Z71.6 Tobacco abuse counseling
CPT/HCPCS: 36415; 36600; 71045; 71250; 80048; 80053; 80305; 81003; 82150; 82550; 82553; 82803; 83036; 83605; 83690; 83735; 83874; 83880; 84100; 84436; 84443; 84484; 85025; 85379; 85610; 85730; 87040; 87070; 87081; 87086; 87205; 93005; 93970; 94640; 96365; 96367; 96375; 99285; J0456; J0696; J1200; J2405; J2543; J2920; J2930; J7030; J7060; J7512; J7613; J7620; J7644; Q0092